=== PATIENT | female | born 1985 | race Caucasian/White ===

== ENCOUNTER 2016-12-09 14:45 | Emergency (ER) | payer SELFPAY ==
[~2016-12-09] VITALS: Ht 162.6 cm; Wt 98.0 kg
[2016-12-09 15:04] VITALS: BP 139/82; PULSE 134; RESP 18; TEMP 102.2; O2SAT 98
[2016-12-09] MEDS ORDERED: SODIUM CHLOR 0.9% 1000 ML INJ 1,000 ML IV SCH (16:01)
[2016-12-09] MEDS ORDERED: MORPHINE SULFATE 4 MG/ML INJ IV PUSH ONE ×2 (16:15→19:30)
[2016-12-09] MEDS ORDERED: SODIUM CHLORIDE 0.9% FLUSH 10 ML FLUSH IV FLUSH PRN (16:15)
[2016-12-09] MEDS ORDERED: VANCOMYCIN INJ 1,000 MG in SODIUM CHLOR 0.9% 250 ML INJ 250 ML IV ONE (16:15)
[2016-12-09] MEDS ORDERED: ONDANSETRON HCL 4 MG/2 ML VIAL IV PUSH ONE (16:15)
--- NOTE | 2016-12-09 16:21 | PD ---
HPI Chief Complaint: Injury Time Seen by Provider: 16:12 Travel History International Travel<30 days: No Contact w/Intl Traveler<30days: No Traveled to known affect area: No History of Present Illness HPI 31-year-old female presents to the emergency Department with complaint of left hand pain and swelling secondary to possible insect bite that she noticed 3-4 days ago. Reports being up-to-date on her tetanus vaccination. Reports onset of fever with MAXIMUM TEMPERATURE 102.02 days ago. Reports vomiting for 2 days. Reports paresthesias to the left hand. Reports decreased range of motion to her fingers and wrist. Denies IV drug use. Rates pain 10/10. Describes it as a throbbing, pressure. Pain radiates up the arm. Has been taking ibuprofen for symptom management. No known relieving factors. Pain is constant. Allergies to doxycycline. Has no other medical complaints. No other modifying factors or associated signs and symptoms. PFSH Past Medical History ?: Not Past Surgical History Hysterectomy: Yes (2014) Social History Alcohol Use: No Tobacco Use: No Substance Use: No Allergies-Medications (Allergen,Severity, Reaction): Coded Allergies: doxycycline (Verified Allergy, Severe, Rash, 12/09/16) Review of Systems Except as stated in HPI: all other systems reviewed are Neg Physical Exam Narrative GENERAL: Well-nourished, well-developed female patient, in no acute distress; febrile 102.2 SKIN: There is an indurated area to the volar aspect of the left hand which measures about 2 cm in diameter. It is fluctuant but there is no pointing or drainage. There is a wound that is approximately 0.5 cm x 1 cm to the volar aspect of the left hand just between the fifth and fourth metacarpal region; No drainage noted; area is with fluctuance. There is a zone of inflammation around. Left hand and wrist are edematous, with erythema, and warmth to touch. Left upper extremity is supple and non-tense with 2+ radial pulse and sensory intact. HEAD: Atraumatic. Normocephalic. EYES: Pupils equal and round. No scleral icterus. No injection or drainage. ENT: Mucosa pink and moist. Airway patent. NECK: Trachea midline. CARDIOVASCULAR: Tachycardic rate and rhythm. No murmur appreciated. RESPIRATORY: Breath sounds clear and equal bilaterally. No accessory muscle use. GASTROINTESTINAL: Obese. MUSCULOSKELETAL: No obvious deformities. No clubbing. No cyanosis. No edema. NEUROLOGICAL: Awake and alert. Oriented 3. No obvious cranial nerve deficits. Motor grossly within normal limits. Normal speech. PSYCHIATRIC: Appropriate mood and affect; insight and judgment normal. Data Data Last Documented VS Vital Signs Date Time Temp Pulse Resp B/P (MAP) Pulse Ox O2 Delivery O2 Flow Rate FiO2 12/09/16 15:04 102.2 134 18 139/82 (101) 98 Orders Orders Complete Blood Count With Diff (12/09/16 16:) Comprehensive Metabolic Panel (12/09/16 16:) Urinalysis - C+S If Indicated (12/09/16 16:) Blood Culture (12/09/16 16:) Chest, Single Ap (12/09/16 16:) Ecg Monitoring (12/09/16 16:) Iv Access Insert/Monitor (12/09/16 16:) Oximetry (12/09/16 16:) Morphine Inj (Morphine Inj) (12/09/16 16:15) Sodium Chlor 0.9% 1000 Ml Inj (Ns 1000 M (12/09/16 16:01) Sodium Chloride 0.9% Flush (Ns Flush) (12/09/16 16:15) Lactic Acid (12/09/16 16:01) Prothrombin Time / Inr (Pt) (12/09/16 16:01) Act Partial Throm Time (Ptt) (12/09/16 16:01) Ed Urine Pregnancytest Poc (12/09/16 16:01) Ondansetron Inj (Zofran Inj) (12/09/16 16:15) Hand, Complete ([id number]) (12/09/16 16:01) Vancomycin Inj (Vancomycin Inj) (12/09/16 16:15) [facility] Medical Decision Making Medical Screen Exam Complete: Yes Emergency Medical Condition: Yes Medical Record Reviewed: Yes Differential Diagnosis Sepsis, abscess, cellulitis, osteomyelitis Narrative Course 31-year-old female with abscess and cellulitis to the volar aspect of the left hand. Patient is fever of 102.2. Heart rate 134. Tetanus up-to-date. Patient denies IV drug use. Sepsis protocol initiated. IV site obtained. Labs , IV fluid bolus, blood cultures, lactic acid, left hand x-ray, morphine, Zofran ordered. 1638: Patient moved to a medical bed for further treatment and evaluation. Report given to KELL Oliveira. See her note for patient final disposition. Renae Asencio Dec 09, 2016 16:21
--- NOTE | 2016-12-09 16:36 | RADRPT ---
EXAM DATE/TIME: 12/09/2016 16:22 [facility] COMPARISON: No previous studies available for comparison. INDICATIONS : Fever. MEDICAL HISTORY : None. SURGICAL HISTORY : None. ENCOUNTER: Initial ACUITY: 4 - 6 days PAIN SCORE: 0/10 LOCATION: chest FINDINGS: A single view of the chest demonstrates the lungs to be symmetrically aerated without evidence of mas s, infiltrate or effusion. The cardiomediastinal contours are unremarkable. Osseous structures are intact. CONCLUSION: No evidence of acute cardiopulmonary disease. Guicho Castro MD on December 09, 2016 at 16:34 Board Certified Radiologist. This report was verified electronically.
--- NOTE | 2016-12-09 16:38 | RADRPT ---
EXAM DATE/TIME: 12/09/2016 16:19 [facility] COMPARISON: No previous studies available for comparison. INDICATIONS : Patient complains of pain in left hand and swelling to area of possible bug bite near 5th MCPJ. MEDICAL HISTORY : None. SURGICAL HISTORY : None. ENCOUNTER: Initial ACUITY: 4 - 6 days PAIN SCORE: 10/10 LOCATION: Left Hand FINDINGS: Severe and fairly diffuse soft tissue swelling noted. No radiopaque foreign body. Bones of the left h and are intact and normally aligned. CONCLUSION: Soft tissue swelling without foreign body or acute bony abnormality. Guicho Castro MD on December 09, 2016 at 16:35 Board Certified Radiologist. This report was verified electronically.
[2016-12-09] MEDS ORDERED: IBUPROFEN 800 MG TAB PO ONE (16:45)
--- NOTE | 2016-12-09 16:57 | PD ---
Physical Exam Date Seen by Provider: Dec 09, 2016 Narrative For full history and physical examination please see previous provider's note. I assumed care of this patient when she was transferred to echo pod. Data Data Last Documented VS Vital Signs Date Time Temp Pulse Resp B/P (MAP) Pulse Ox O2 Delivery O2 Flow Rate FiO2 12/09/16 19:55 98.9 12/09/16 19:15 18 99 Room Air 12/09/16 19:15 79 Orders Orders Complete Blood Count With Diff (12/09/16 16:01) Comprehensive Metabolic Panel (12/09/16 16:01) Urinalysis - C+S If Indicated (12/09/16 16:01) Blood Culture (12/09/16 16:01) Chest, Single Ap (12/09/16 16:) Ecg Monitoring (12/09/16 16:01) Iv Access Insert/Monitor (12/09/16 16:01) Oximetry (12/09/16 16:01) Morphine Inj (Morphine Inj) (12/09/16 16:15) Sodium Chlor 0.9% 1000 Ml Inj (Ns 1000 M (12/09/16 16:01) Sodium Chloride 0.9% Flush (Ns Flush) (12/09/16 16:15) Lactic Acid (12/09/16 16:01) Prothrombin Time / Inr (Pt) (12/09/16 16:01) Act Partial Throm Time (Ptt) (12/09/16 16:01) Ed Urine Pregnancytest Poc (12/09/16 16:01) Ondansetron Inj (Zofran Inj) (12/09/16 16:15) Hand, Complete (Dpt5gve) (12/09/16 16:01) Vancomycin Inj (Vancomycin Inj) (12/09/16 16:15) Ibuprofen (Motrin) (12/09/16 16:45) Vascular Access Team Consult/P PRN (12/09/16 16:44) Vascular Poc Ultrasound (12/09/16 ) Wound Culture And Gram Stain (12/09/16 17:48) Drug Screen, Random Urine (12/09/16 18:03) Piperacil-Tazo 4.5 Gm Premix (Zosyn 4.5 (12/09/16 18:04) Clindamycin Inj (Cleocin Inj) (12/09/16 18:04) Acetaminophen (Tylenol) (12/09/16 19:00) Oxycodone-Acetamin 7.5-325 Mg (Percocet (12/09/16 19:30) Morphine Inj (Morphine Inj) (12/09/16 19:30) Labs Laboratory Tests Test 12/09/16 17:15 12/09/16 18:02 12/09/16 18:05 White Blood Count 8.5 TH/MM3 Red Blood Count 4.51 MIL/MM3 Hemoglobin 13.5 GM/DL Hematocrit 39.0 % Mean Corpuscular Volume 86.4 FL Mean Corpuscular Hemoglobin 30.0 PG Mean Corpuscular Hemoglobin Concent 34.7 % Red Cell Distribution Width 13.2 % Platelet Count 221 TH/MM3 Mean Platelet Volume 8.4 FL Neutrophils (%) (Auto) 79.0 % Lymphocytes (%) (Auto) 11.9 % Monocytes (%) (Auto) 8.8 % Eosinophils (%) (Auto) 0.0 % Basophils (%) (Auto) 0.3 % Neutrophils # (Auto) 6.7 TH/MM3 Lymphocytes # (Auto) 1.0 TH/MM3 Monocytes # (Auto) 0.8 TH/MM3 Eosinophils # (Auto) 0.0 TH/MM3 Basophils # (Auto) 0.0 TH/MM3 CBC Comment DIFF FINAL Differential Comment Prothrombin Time 12.0 SEC Prothromb Time International Ratio 1.1 RATIO Activated Partial Thromboplast Time 26.8 SEC Blood Urea Nitrogen 8 MG/DL Creatinine 0.76 MG/DL Random Glucose 107 MG/DL Total Protein 8.3 GM/DL Albumin 3.3 GM/DL Calcium Level 8.7 MG/DL Alkaline Phosphatase 84 U/L Aspartate Amino Transf (AST/SGOT) 25 U/L Alanine Aminotransferase (ALT/SGPT) 16 U/L Total Bilirubin 0.7 MG/DL Sodium Level 132 MEQ/L Potassium Level 3.9 MEQ/L Chloride Level 101 MEQ/L Carbon Dioxide Level 24.3 MEQ/L Anion Gap 7 MEQ/L Estimat Glomerular Filtration Rate 89 ML/MIN Lactic Acid Level 1.1 mmol/L Urine Color YELLOW Urine Turbidity HAZY Urine pH 6.5 Urine Specific [place] 1.025 Urine Protein 100 mg/dL Urine Glucose (UA) NEG mg/dL Urine Ketones 80 mg/dL Urine Occult Blood TRACE Urine Nitrite NEG Urine Bilirubin NEG Urine Urobilinogen 4.0 MG/DL Urine Leukocyte Esterase TRACE Urine RBC 9 /hpf Urine WBC 6 /hpf Urine Squamous Epithelial Cells 28 /hpf Urine Mucus MANY /lpf Microscopic Urinalysis Comment CULT NOT INDICATED Urine Opiates Screen POS Urine Barbiturates Screen NEG Urine Amphetamines Screen NEG Urine Benzodiazepines Screen NEG Urine Cocaine Screen NEG Urine Cannabinoids Screen NEG MDM Medical Record Reviewed: Yes Supervised Visit with PERLA: No Interpretation(s) Vital Signs Date Time Temp Pulse Resp B/P (MAP) Pulse Ox O2 Delivery O2 Flow Rate FiO2 12/09/16 15:04 102.2 134 18 139/82 (101) 98 Differential Diagnosis Cellulitis versus abscess versus sepsis versus Narrative Course Patient is a 31-year-old female that presented to evaluation left hand pain and swelling after being allegedly bit by something 4 days ago. Labs and imaging initiated while patient was in K pod. X-ray of the right hand shows soft tissue swelling. Chest x-ray shows no acute disease CBC is unremarkable Chemistry is unremarkable, lactic acid 1.1 Wound culture obtained after I&D was performed and is pending. Patient given IV vancomycin, Clindamycin, zosyn, oral ibuprofen for her fever, Morphine ordered for pain. 1858 patient reassessed, temp is 100.5. Patient continues to states that she "feels like crap". Acetaminophen ordered. Urine drug screen is positive for opiates however patient received a dose prior to the urine drug screen being performed. Plan of care discussed with my attending physician. Urinalysis with elevated urobilinogen at 4.0, elevated white blood cells 9, elevated white blood cells at 6, elevated ketones. Patient will be given IV antibiotics and then discharged home with oral antibiotics to complete full course of therapy. She will be brought back to the emergency department in 48 hours to have packing removed and for reevaluation. She is advised to return sooner for any new or worsening symptoms. Procedures Procedure Narrative After the risks and benefits were discussed the following procedure was performed: INCISION AND DRAINAGE OF ABSCESS: The area was prepped and was sterilely draped. A subcutaneous wheal of 1% Xylocaine with a total number 1 mL was used to anesthetize the area. The area was properly anesthetized. A number 11 scalpel was used to make a 0.5 -cm incision across the area of the abscess. Cultures were obtained. The abscess was drained an irrigated with normal saline. Quarter inch iodoform packing was placed in the wound. Sterile dressing applied. Patient advised to have packing removed in two days. Sepsis Criteria SIRS Criteria (2 or more): Temp > 100.9 or < 96.8, Heart rate over 90 Sepsis Criteria (SIRS+source): Infect source susp/known (left hand cellulitis/ abscess) Diagnosis Primary Impression: Cellulitis and abscess of hand Referrals: [facility] Primary Care Physician Patient Instructions: Abscess (GEN), Abscess Incision and Drainage (GEN), Cellulitis (ED), General Instructions Departure Forms: Tests/Procedures, Work Release Enter return to work date: Dec 12, 2016 Additional Instruction: Return to emergency department in 48 hours to have packing removed from your hand Return immediately for any new or worsening symptoms Complete full course of antibiotics as prescribed Do not drive or operate machinery while taking narcotic pain medication keep incision clean and dry, apply topical antibiotic ointment and change dressing twice daily Med/Other Pt SpecificInfo: Prescription(s) given Scripts Ibuprofen (Ibuprofen) 800 Mg Tab 800 MG PO Q6HR Y for PAIN, #40 TAB 0 Refills Prov: Donna Alejandre 12/09/16 Oxycodone-Acetaminophen (Percocet) 5-325 mg Tab 1 TAB PO Q4H Y for PAIN, #10 TAB 0 Refills Prov: Donna Alejandre 12/09/16 Mupirocin Topical (Mupirocin Topical) 2 % Oint 1 APPLIC TOPICAL BID for Mgmt Bacterial Infection, #22 GM 0 Refills Prov: Donna Alejandre 12/09/16 Cephalexin (Keflex) 500 Mg Cap 500 MG PO Q12H for Infection, #20 CAP 0 Refills Prov: Donna Alejandre 12/09/16 Sulfamethoxazole-Trimethoprim (Bactrim DS) 800-160 Mg Tab 1 TAB PO BID for Infection, #20 TAB 0 Refills Prov: Donna Alejandre 12/09/16 Disposition: 01 DISCHARGE HOME Condition: Stable Donna Alejandre Dec 09, 2016 16:57
[2016-12-09] MEDS ORDERED: [UNRECOGNIZED DRUG - REMARK] (17:01)
[2016-12-09 17:30] LABS: AUTOMATED NEUTROPHIL # 6.7 TH/MM3 (1.8-7.7); BASOPHIL % 0.3 % (0.0-2.0); HEMO FLAGS DIFF FINAL; LYMPH % 11.9 % (9.0-44.0); MEAN CELL VOLUME 86.4 FL (80.0-100.0); MEAN CORPUSCULAR HGB CONC 34.7 % (32.0-36.0); MONO % 8.8 % (0.0-8.0); PLATELET COUNT 221 TH/MM3 (150-450); RED BLOOD COUNT 4.51 MIL/MM3 (4.00-5.30); RED CELL DISTRIBUTION WIDTH 13.2 % (11.6-17.2); WHITE BLOOD COUNT 8.5 TH/MM3 (4.0-11.0)
[2016-12-09 17:44] LABS: APTT (PATIENT) 26.8 SEC (24.3-30.1); INTERNATIONAL NORMALIZED RATIO 1.1 RATIO
[2016-12-09 17:54] LABS: ALKALINE PHOSPHATASE 84 U/L (45-117); ALT (GPT) 16 U/L (10-53); TOTAL BILIRUBIN ADULT 0.7 MG/DL (0.2-1.0)
[2016-12-09 17:58] LABS: ANION GAP 7 MEQ/L (5-15); AST (GOT) 25 U/L (15-37); BICARBONATE 24.3 MEQ/L (21.0-32.0); BLOOD UREA NITROGEN 8 MG/DL (7-18); CHLORIDE 101 MEQ/L (98-107); GLOMERULAR FILTRATION RATE 89 ML/MIN (>89); POTASSIUM 3.9 MEQ/L (3.5-5.1); SODIUM (NA) 132 MEQ/L (136-145)
[2016-12-09] MEDS ORDERED: PIPERACIL-TAZO 4.5 GM PREMIX 100 ML IV STA (18:04)
[2016-12-09] MEDS ORDERED: CLINDAMYCIN INJ 900 MG in SODIUM CHLORIDE 0.9% INJ 100 ML IV STA (18:04)
[2016-12-09 18:33] LABS: BLOOD, URINE TRACE (NEG); COMMENT (UR) CULT NOT INDICATED; CULTURE IF INDICATED CULT NOT INDICATED; GLUCOSE,URINE NEG (NEG); KETONE, URINE 80 mg/dL (NEG); MUCUS URINE MANY /lpf (OCC); NITRITE,URINE NEG (NEG); PH, URINE 6.5 (5.0-8.5); SQUAMOUS EPITHELIAL CELL URINE 28 /hpf (0-5); URINE COLOR YELLOW (YELLW/STRAW)
[2016-12-09] MEDS ORDERED: ACETAMINOPHEN 500 MG CPLT PO ONE (19:00)
[2016-12-09 19:15] VITALS: BP 120/58; PULSE 79; RESP 18; O2SAT 99
[2016-12-09] MEDS ORDERED: BACT800T5 PO (19:18)
[2016-12-09] MEDS ORDERED: CEPH-460 PO (19:18)
[2016-12-09] MEDS ORDERED: MUPI2OIN TOPICAL (19:18)
[2016-12-09] MEDS ORDERED: PERC5TAB12 PO (19:18)
[2016-12-09] MEDS ORDERED: IBUP1TAB7 PO (19:27)
[2016-12-09] MEDS ORDERED: oxyCODONE/ACETAMINOPHEN 7.5 MG/325 MG TAB PO ONE (19:30)
[2016-12-09 19:55] VITALS: TEMP 98.9
== END 2016-12-09 20:23 | disposition home or self-care (01) ==
LOC: NEPE 14:45
DX: L02.519 Cutaneous abscess of unspecified hand (principal); L03.019 Cellulitis of unspecified finger; R50.9 Fever, unspecified
CPT/HCPCS: 10061; 71010; 73130; 80053; 80307; 81001; 83605; 84703; 85025; 85610; 85730; 87040; 96365; 96367; 96375; 96376; 99284; J2270; J2405; J2543; J3370; J7030; J7050

== ENCOUNTER 2016-12-11 19:25 | Emergency (ER) | payer SELFPAY ==
[~2016-12-11 19:25] MED LIST: BACT800T5 PO; CEPH-460 PO; IBUP1TAB7 PO; MUPI2OIN TOPICAL; PERC5TAB12 PO; [UNRECOGNIZED DRUG - REMARK]
[2016-12-11 19:28] VITALS: BP 143/81; PULSE 86; RESP 16; TEMP 98.5; O2SAT 100
[2016-12-11] MEDS ORDERED: ZOFR4TAB3 SL (21:05)
--- NOTE | 2016-12-11 21:08 | PD ---
HPI Chief Complaint: Injury Time Seen by Provider: 20:45 Travel History International Travel<30 days: No Contact w/Intl Traveler<30days: No Traveled to known affect area: No History of Present Illness HPI PATIENT SEEN 3 DAYS AGO HAD I&D AND PACKING AND ADVISED TO RETURN FOR REPACKING , CURRENTLY ON KEFLEX AND BACTRIM WHICH SHE IS STILL TAKING. PATIENT STATES THAT SHE OCCASIONALLY HAS BOUTS OF NAUSEA AFTER TAKING BACTRIM, BUT NO RASH PFSH Past Surgical History Hysterectomy: Yes (2014) Social History Alcohol Use: No Tobacco Use: No Substance Use: No Allergies-Medications (Allergen,Severity, Reaction): Coded Allergies: doxycycline (Verified Allergy, Severe, Rash, 12/09/16) Reported Meds & Prescriptions Reported Meds & Active Scripts Active Ibuprofen 800 Mg Tab 800 Mg PO Q6HR PRN Percocet (Oxycodone-Acetaminophen) 5-325 mg Tab 1 Tab PO Q4H PRN Mupirocin Topical (Mupirocin) 2 % Oint 1 Applic TOPICAL BID Keflex (Cephalexin) 500 Mg Cap 500 Mg PO Q12H Bactrim DS (Sulfamethoxazole-Trimethoprim) 800-160 Mg Tab 1 Tab PO BID Reported [estrogen pills ] Review of Systems Except as stated in HPI: all other systems reviewed are Neg General / Constitutional: No: Fever Eyes: No: Visual changes HENT: No: Headaches Cardiovascular: No: Chest Pain or Discomfort Respiratory: No: Shortness of Breath Gastrointestinal: No: Abdominal Pain Genitourinary: No: Dysuria Musculoskeletal: No: Pain Skin: Positive Other (LEFT HAND ABSCESS S/P PACKING) Neurologic: No: Weakness Psychiatric: No: Depression Endocrine: No: Polydipsia Hematologic/Lymphatic: No: Easy Bruising Physical Exam Narrative GENERAL: SKIN: Warm and dry. LEFT DORSUM OF HAND HAS PACKING IN PLACE, NO STREAKING, SOFTENING NOTED BUT NO FLUCTUANCE. HEAD: Atraumatic. Normocephalic. EYES: Pupils equal and round. No scleral icterus. No injection or drainage. ENT: No nasal bleeding or discharge. Mucous membranes pink and moist. NECK: Trachea midline. No JVD. CARDIOVASCULAR: Regular rate and rhythm. RESPIRATORY: No accessory muscle use. Clear to auscultation. Breath sounds equal bilaterally. GASTROINTESTINAL: Abdomen soft, non-tender, nondistended. Hepatic and splenic margins not palpable. MUSCULOSKELETAL: Extremities without clubbing, cyanosis, or edema. No obvious deformities. NEUROLOGICAL: Awake and alert. No obvious cranial nerve deficits. Motor grossly within normal limits. Five out of 5 muscle strength in the arms and legs. Normal speech. PSYCHIATRIC: Appropriate mood and affect; insight and judgment normal. Data Data Last Documented VS Vital Signs Date Time Temp Pulse Resp B/P (MAP) Pulse Ox O2 Delivery O2 Flow Rate FiO2 12/11/16 19:28 98.5 86 16 143/81 (101) 100 MDM Medical Decision Making Medical Screen Exam Complete: Yes Emergency Medical Condition: Yes Medical Record Reviewed: Yes Differential Diagnosis N/A Narrative Course AFTER EVALUATION, AREA HEALING WELL, NO SORROUNDING STREAKING, DECREASING CELLULITIC AREA, APPROPRIATE WOUND HEALING, HOWEVER, NOT YET FULLY RESOLVED WILL REPACK AFTER IRRIGATION Procedures Procedure Narrative AREA CLEANED, IRRIGATED AND REPACKED WITH IODOFORM GAUZE..PATIENT TOLERATED WELL. Diagnosis Primary Impression: WOUND CARE (REPACKING/IRRGATION) Patient Instructions: Acute Wound Care (GEN), General Instructions Scripts Ondansetron Odt (Zofran Odt) 4 Mg Tab 4 MG SL Q6HR Y for Nausea/Vomiting, #21 TAB 0 Refills Prov: Ricardo Barrera MD 12/11/16 Disposition: 01 DISCHARGE HOME Condition: Stable Ricardo Barrera MD Dec 11, 2016 21:08
== END 2016-12-11 21:45 | disposition home or self-care (01) ==
LOC: NEPE 19:25
DX: Z48.01 Encounter for change or removal of surgical wound dressing (principal)
CPT/HCPCS: 99281

== ENCOUNTER 2017-11-01 19:27 | Inpatient (IN) ==
[2017-11-01] MEDS ORDERED: Vancomycin Inj 1 GM/200 ML PIGGYBACK IV.SIG ONE (22:34)
[2017-11-01] MEDS ORDERED: Ketorolac Inj 30 MG/ML (IVP) Vial IV.PUSH ONE (22:34)
--- NOTE | 2017-11-01 22:44 | ED ---
HPI General Chief complaint: Skin/Abscess/Foreign Body Stated complaint: recheck left hand/skin issue Time Seen by Provider: 11/01/17 22:22 Source: patient Mode of arrival: ambulatory Limitations: no limitations History of Present Illness HPI narrative: 32-year-old female complains of pain and swelling and redness of the left hand. Patient has history of IV drug abuse. Patient states that she started having increased redness swelling and pain the left hand 4 days ago. Patient was seen at [facility] 4 days ago and had I&D of the left hand. Patient states that she has packing in place. Patient was given prescription for clindamycin and Keflex. Patient states that she was unable to fill prescription for clindamycin and has been taking Keflex as directed. Patient states that she had low-grade fever and intermittent nausea vomiting for the past several days. Patient states that she had increasing redness swelling and pain to the left hand. Patient stated pain burning pain and sharp pain started in the dorsal aspect left hand with radiates to the left wrist and left forearm. Patient denies any chance of being . Patient status post hysterectomy. Patient on estrogen. complaint: abscess/boil Onset (ago): day(s) Tetanus Immunization: <5 Years Location: L hand Severity: severe Severity scale (1-10): 10 Quality: sharp Pain Consistency: constant Relieving factors: none Exacerbating factors: none Context: IVDA Associated symptoms: fever, nausea and vomiting Treatments prior to arrival: antibiotic Related Data Home Medications Medication Instructions Recorded Confirmed No Known Home Medications 11/01/17 11/01/17 Allergies Allergy/AdvReac Type Severity Reaction Status Date / Time doxycycline Allergy Severe Rash Verified 11/01/17 21:14 Sulfa (Sulfonamide Allergy Vomiting Verified 11/01/17 21:14 Antibiotics) sumatriptan [From Imitrex] Allergy Anaphylaxis Verified 11/01/17 21:14 tramadol Allergy Hives Verified 11/01/17 21:14 Review of Systems ROS: all other systems reviewed are negative PMFSH Medical History Medical History Endometriosis (Acute) Hx of hysterectomy (Acute) Surgical History Surgical History Hx of appendectomy (Acute) Hx of cholecystectomy (Acute) Social History Social History Substance History: Active Abuse Second Hand Smoke Exposure: No Smoking Status: Never smoker How Often Do You Have a Drink Containing Alcohol: 2 to 4 times a month Recent Travel in [facility] within the Last 8 Weeks: No Recent Out of Country Travel within the Last 8 Weeks: No Substance Abuse Detail Opiates: Substance Use Status: Active Route Used Substance Abuse: Intravenously Reason for Use: Feels Good Immunization History Tetanus Immunization: Unsure Hx Influenza Vaccine This Season: No Exam Narrative Exam Narrative: GENERAL: Well-nourished, well-developed patient. SKIN: Focused skin assessment warm/dry. HEAD: Normocephalic. EYES: No scleral icterus. No injection or drainage. NECK: Supple, trachea midline. No JVD or lymphadenopathy. CARDIOVASCULAR: Regular rate and rhythm without murmurs, gallops, or rubs. RESPIRATORY: Breath sounds equal bilaterally. No accessory muscle use. GASTROINTESTINAL: Abdomen soft, non-tender, nondistended. MUSCULOSKELETAL: Patient has redness swelling tenderness dorsal aspect of left hand over the metacarpal area especially the fifth and fourth and third metacarpals. Packing in place. No drainage noted. Induration noted. Decrease in range of motion of the fingers. BACK: Nontender without obvious deformity. No CVA tenderness. Course Initial Documented Vital Signs Temperature 99.5 F 11/01/17 21:10 Pulse Rate 93 H 11/01/17 21:10 Respiratory Rate 18 11/01/17 21:10 Blood Pressure 136/66 11/01/17 21:10 Pulse Oximetry 100 11/01/17 21:10 Last Documented Vital Signs Temperature 99.5 F 11/01/17 21:10 Pulse Rate 75 11/02/17 01:25 Respiratory Rate 17 11/02/17 01:25 Blood Pressure 126/81 11/02/17 01:25 Pulse Oximetry 100 11/02/17 01:25 Medical Decision Making MDM Narrative Medical decision making narrative: 32-year-old female with left hand redness swelling tenderness. Status post I&D of abscess 4 days ago at [facility]. Patient has increasing redness swelling pain since then. Patient has been taking Keflex. The packing was removed. A large amount of pus recovered. Wound culture obtained. Dressing applied. Vancomycin 1 g IV given. Toradol 30 mg IV given. Medical Screen Exam Complete: Yes Emergency Medical Condition: Yes Differential Diagnosis Differential Diagnosis: Differential diagnosis including cellulitis, abscess. Lab Data Lab results reviewed: Yes I reviewed the patient's lab results. Result diagrams: 11/02/17 00:30 11/02/17 00:30 Lab Results 11/02/17 11/02/17 Range/Units 00:30 00:30 WBC 6.0 (4.0-11.0) th/mm3 RBC 4.12 (4.00-5.30) mil/mm3 Hgb 11.9 (11.6-15.3) gm/dL Hct 35.5 (35.0-46.0) % MCV 86.2 (80.0-100.0) fL MCH 28.8 (27.0-34.0) pg MCHC 33.4 (32.0-36.0) % RDW 13.2 (11.6-17.2) % Plt Count 288 (150-450) th/mm3 MPV 7.8 (7.0-11.0) fL Neut % (Auto) 67.1 (16.0-70.0) % Lymph % (Auto) 25.4 (9.0-44.0) % [place] % (Auto) 6.7 (0.0-8.0) % Eos % (Auto) 0.6 (0.0-4.0) % Baso % (Auto) 0.2 (0.0-2.0) % Neut # (Auto) 4.0 (1.8-7.7) th/mm3 Lymph # (Auto) 1.5 (1.0-4.8) th/mm3 [place] # (Auto) 0.4 (0.0-0.9) th/mm3 Eos # (Auto) 0.0 (0.0-0.4) th/mm3 Baso # (Auto) 0.0 (0.0-0.2) th/mm3 WBC Differential . Differential Comment Auto diff final Sodium 144 (136-145) meq/L Potassium 3.7 (3.5-5.1) meq/L Chloride 109 H (98-107) meq/L Carbon Dioxide 25.8 (21.0-32.0) meq/L Anion Gap 9 (5-15) meq/L BUN 9 (7-18) mg/dL Creatinine 0.78 (0.50-1.00) mg/dL Estimated GFR 86 L (>89) mL/min Random Glucose 97 (74-106) mg/dL Calcium 8.7 (8.5-10.1) mg/dL Imaging Data Attestation: I personally reviewed and interpreted this imaging study as follows : Radiologist's impression: Hand X-Ray 11/01/17 22:30 CONCLUSION: 1. Osseous structures the hand are radiographically intact. 2. Mild dorsal soft tissue swelling. Discharge Plan Discharge Disposition Patient Disposition: 30 Still Patient Physicians Team ED Provider: Tong Toledo Primary Care Provider: Primary Care BeryliAmber Rxs /Orders / Referrals /Forms Prescriptions: No Action No Known Home Medications RF: 0 Status ED Status: With Doctor
[2017-11-01] MEDS ORDERED: Vancomycin Inj 1,000 MG in Sodium Chlor 0.9% Inj 250 ML IV.SIG ONE (22:45)
--- NOTE | 2017-11-01 23:08 | XR ---
EXAM DATE: 11/01/2017 10:30 PM EDT AGE/SEX: 32 years / Female INDICATIONS: Left hand pain and swelling. Possible abscess. CLINICAL DATA: This is the patient's initial encounter. Patient reports that signs and symptoms have been present for 4 - 6 days and indicates a pain score of 10/10. MEDICAL/SURGICAL HISTORY: None. None. COMPARISON: [facility] [place], HAND LEFT COMPLETE ([id number]), 12/09/2016. . FINDINGS: Bony structures are intact and in normal alignment. Osseous density is normal. Mild soft tissue swell ing about the dorsum of the hand.. No radiopaque foreign bodies seen. CONCLUSION: 1. Osseous structures the hand are radiographically intact. 2. Mild dorsal soft tissue swelling. Electronically signed by: Byron Meeks MD 11/01/2017 11:07 PM EDT
[2017-11-02 00:47] LABS: Baso % (Auto) 0.2 % (0.0-2.0); Eos % (Auto) 0.6 % (0.0-4.0); Hematocrit 35.5 % (35.0-46.0); Hemoglobin 11.9 gm/dL (11.6-15.3); Lymph # (Auto) 1.5 th/mm3 (1.0-4.8); Lymph % (Auto) 25.4 % (9.0-44.0); Mean Corpuscular HGB Conc 33.4 % (32.0-36.0); Mean Corpuscular Hemoglobin 28.8 pg (27.0-34.0); Mean Corpuscular Volume 86.2 fL (80.0-100.0); Mean Platelet Volume 7.8 fL (7.0-11.0); Mono # (Auto) 0.4 th/mm3 (0.0-0.9); Mono % (Auto) 6.7 % (0.0-8.0); Neut % (Auto) 67.1 % (16.0-70.0); Platelet Count 288 th/mm3 (150-450); Red Blood Count 4.12 mil/mm3 (4.00-5.30); Red Cell Distribution Width 13.2 % (11.6-17.2)
[2017-11-02 01:04] LABS: Calcium 8.7 mg/dL (8.5-10.1); Carbon Dioxide 25.8 meq/L (21.0-32.0); Potassium 3.7 meq/L (3.5-5.1)
[2017-11-02] MEDS ORDERED: Vancomycin Consult Pharmacy OTHER PRN (04:25)
[2017-11-02] MEDS ORDERED: Bisacodyl 10 MG Supp RECTAL PRN (04:28)
[2017-11-02] MEDS ORDERED: Acetaminophen 325 MG Tablet PO ONE (04:28)
--- NOTE | 2017-11-02 05:15 | P.HPIM ---
History of Present Illness Primary Care Physician: No Primary Care Physician History of Present Illness: 32-year-old female with a history of IV drug use who presents with one week history of redness, swelling, constant sharp pain in the left hand. She presented to [facility] 4 days ago, had an incision and drainage with culture, was sent home on Keflex and clindamycin, however has only been able to take her Keflex. She presents with worsening pain, swelling in the left hand. She endorses low-grade fevers, nausea, nonbloody vomiting. Denies any chest pain or shortness of breath. Inpatient Certification: I certify that the inpatient services were ordered in accordance with Medicare regulations governing the order. This includes certification that hospital inpatient services are reasonable and necessary and in the case of services not specified as inpatient-only under 42 CFR 419.22(n), that they are appropriately provided as inpatient services in accordance to with the 2-midnight benchmark under 43 CFR 412.3(e) Review of Systems All other systems reviewed negative except as stated in HPI PMFSH - History History Provided By: Patient - Medical History Medical History: Medical History (Last Reviewed 11/01/17 @ 22:41 by Tong Toledo MD) Endometriosis Hx of hysterectomy - Surgical History Surgical History: Surgical History (Last Reviewed 11/01/17 @ 22:41 by Tong Toledo MD) Hx of appendectomy Hx of cholecystectomy - Family History Family History: Family History (Last Updated 11/02/17 @ 05:10 by Gael Mejia MD) Mother Stroke Father Diabetes - Tobacco History Second Hand Smoke Exposure: No Smoking Status: Never smoker - Alcohol History How Often Do You Have a Drink Containing Alcohol: 2 to 4 times a month - Substance Use History Substance History: Active Abuse - Substance Use Type Opiates Status: Active Route Used: Intravenously Reason for Use: Feels Good - Travel History Recent Travel in the [place] Within the Last 8 Weeks: No Recent Travel Out of the Country Within the Last 8 Weeks: No - Immunization History Tetanus Immunization: Unsure Hx Influenza Vaccine This Season: No Medications and Allergies Active Medications: Active Medications Al Hydroxide/Mg Hydroxide (Milk Of Magnesia Liq) 30 ml PO Q12H PRN PRN Reason: Mild Constipation Bisacodyl (Dulcolax Supp) 10 mg RECTAL DAILY PRN PRN Reason: SEVERE CONSITIPATION Sodium Chloride (Ns Inj) 1,000 mls @ 100 mls/hr IV.CONT .Q10H KOFI Lactulose (Lactulose Liq) 30 ml PO DAILY PRN PRN Reason: SEVERE CONSITIPATION Pharmacy Profile Note (Vancomycin Consult Pharmacy) 1 each OTHER UNSCH PRN PRN Reason: Pharmacy to dose Sennosides (Senokot) 17.2 mg PO Q12H PRN PRN Reason: Moderate Constipation Allergies Allergy/AdvReac Type Severity Reaction Status Date / Time doxycycline Allergy Severe Rash Verified 11/01/17 21:14 Sulfa (Sulfonamide Allergy Vomiting Verified 11/01/17 21:14 Antibiotics) sumatriptan [From Imitrex] Allergy Anaphylaxis Verified 11/01/17 21:14 tramadol Allergy Hives Verified 11/01/17 21:14 Home Medications Medication Instructions Recorded Confirmed Type No Known Home Medications 11/01/17 11/01/17 History Exam Vital signs: Vital Signs 11/01/17 21:10 11/02/17 01:25 Temperature 99.5 F Pulse Rate 93 H 75 Respiratory Rate 18 17 Blood Pressure 136/66 126/81 Pulse Oximetry 100 100 Intake & Output 11/01/17 11/01/17 11/02/17 06:59 18:59 06:59 Intake Total 250 / 250 Balance 250 / 250 Weight 95.254 kg Intake: IV 250 / 250 Vancomycin Inj 1,000 MG In NS 250 / 250 Inj 250 ML @ 250 mls/hr IV.SIG ONCE ONE Rx#:[id number] Narrative: GENERAL: Patient sitting up in bed. Appears comfortable. Alert and oriented x3. SKIN: Warm and dry. HEAD: Atraumatic. Normocephalic. EYES: Pupils equal and round. No scleral icterus. No injection or drainage. ENT: No nasal bleeding or discharge. Mucous membranes pink and moist. NECK: Trachea midline. No JVD. CARDIOVASCULAR: Regular rate and rhythm. RESPIRATORY: No accessory muscle use. Clear to auscultation. Breath sounds equal bilaterally. GASTROINTESTINAL: Abdomen soft, non-tender, nondistended. Hepatic and splenic margins not palpable. MUSCULOSKELETAL: Extremities without clubbing, cyanosis, or edema. No obvious deformities. Dorsum of left medial hand with marketed erythema, warmth, swelling. Purulent drainage from incision. NEUROLOGICAL: Awake and alert. No obvious cranial nerve deficits. Motor grossly within normal limits. Five out of 5 muscle strength in the arms and legs. Normal speech. PSYCHIATRIC: Appropriate mood and affect; insight and judgment normal. Results - Labs CBC & Chem 7: 11/02/17 00:30 11/02/17 00:30 Labs: Short CBC 11/02/17 Range/Units 00:30 WBC 6.0 (4.0-11.0) th/mm3 Hgb 11.9 (11.6-15.3) gm/dL Hct 35.5 (35.0-46.0) % Plt Count 288 (150-450) th/mm3 BMP 11/02/17 00:30 Sodium 144 Potassium 3.7 Chloride 109 H Carbon Dioxide 25.8 BUN 9 Creatinine 0.78 Calcium 8.7 - Imaging Impressions Hand X-Ray 11/01/17 22:30 CONCLUSION: 1. Osseous structures the hand are radiographically intact. 2. Mild dorsal soft tissue swelling. Caprini VTE Risk Assessment Caprini VTE Risk Assessment: No/Low Risk (score <= 1) Caprini Risk Assessment Model: Point Value = 1 Point Value = 2 Point Value = 3 Point Value = 5 Age 41-60 Minor surgery BMI > 25 kg/m2 Swollen legs Varicose veins or History of unexplained or recurrent spontaneous Oral contraceptives or hormone replacement Sepsis (< 1 month) Serious lung disease, including pneumonia (< 1 month) Abnormal pulmonary function Acute myocardial infarction Congestive heart failure (< 1 month) History of inflammatory bowel disease Medical patient at bed rest Age 61-74 Arthroscopic surgery Major open surgery (> 45 min) Laparoscopic surgery (> 45 min) Malignancy Confined to bed (> 72 hours) Immobilizing plaster cast Central venous access Age >= 75 History of VTE Family history of VTE Factor V Leiden Prothrombin [id number] Lupus anticoagulant Anticardiolipin antibodies Elevated serum homocysteine Heparin-induced thrombocytopenia Other congenital or acquired thrombophilia Stroke (< 1 month) Elective arthroplasty Hip, pelvis, or leg fracture Acute spinal cord injury (< 1 month) Prophylaxis Regimen: Total Risk Factor Score Risk Level Prophylaxis Regimen 0-1 Low Early ambulation 2 Moderate Order ONE of the following: *Sequential Compression Device (SCD) *Heparin 5000 units SQ BID 3-4 Higher Order ONE of the following medications: *Heparin 5000 units SQ TID *Enoxaparin/Lovenox 40 mg SQ daily (WT < 150 kg, CrCl > 30 mL/min) *Enoxaparin/Lovenox 30 mg SQ daily (WT < 150 kg, CrCl > 10-29 mL/min) *Enoxaparin/Lovenox 30 mg SQ BID (WT < 150 kg, CrCl > 30 mL/min) AND/OR *Sequential Compression Device (SCD) 5 or more Highest Order ONE of the following medications: *Heparin 5000 units SQ TID (Preferred with Epidurals) *Enoxaparin/Lovenox 40 mg SQ daily (WT < 150 kg, CrCl > 30 mL/min) *Enoxaparin/Lovenox 30 mg SQ daily (WT < 150 kg, CrCl > 10-29 mL/min) *Enoxaparin/Lovenox 30 mg SQ BID (WT < 150 kg, CrCl > 30 mL/min) AND *Sequential Compression Device (SCD) Assessment and Plan - Plan //Left hand abscess. = No leukocytosis or other SIRS criteria. Will start on broad-spectrum antibiotics. = Erythema is quite significant, and we will consult hand surgery. Request cultures from [facility]. //IV drug use. Cessation counseling provided. Discussed Condition With: Patient, nurse, ED physician.
[2017-11-02] MEDS: Sod Chloride 0.9% Inj 1,000 ML IV.CONT SCH ×4 (05:39→20:29)
--- NOTE | 2017-11-02 10:33 | US ---
EXAM DATE: 11/02/2017 12:00 AM EDT AGE/SEX: 32 years / Female INDICATIONS: Left hand IV drug use, pain and drainage from wound site. CLINICAL DATA: This is the patient's initial encounter. Patient reports that signs and symptoms have been present for 4 - 6 days and indicates a pain score of 10/10. MEDICAL/SURGICAL HISTORY: . IV drug use. Appendectomy. Cholecystectomy. Hysterectomy. COMPARISON: No prior exams available for comparison. FINDINGS: There is an ill-defined subcutaneous collection measuring 4.2 x 2.0 x 0.8 cm with regional hyperemia in the ulnar aspect of the hand. This collection is less than 5 mm below the skin surface. CONCLUSION: 1. Ultrasound findings concerning for subcutaneous 4.2 cm abscess in the ulnar aspect of the left landry nd. Electronically signed by: Jimy Kauffman MD 11/02/2017 10:31 AM EDT
[2017-11-02] MEDS: Ketorolac Inj 30 MG/ML (IVP) Vial IV.PUSH PRN ×2 (11:36→21:51)
[2017-11-02] MEDS: Vancomycin Inj 1,500 MG in Sodium Chlor 0.9% Inj 500 ML IV.SIG SCH ×2 (11:37→23:18)
--- NOTE | 2017-11-02 17:50 | MB ---
cc: Parish Wong MD DATE: 11/02/2017 REASON FOR CONSULTATION: Left hand infection. HISTORY OF PRESENT ILLNESS: The patient is a 32-year-old right-hand dominant female, presenting with complaints of pain and swelling involving the left hand for the past 4 days. The patient gives a history of IV drug abuse. The patient was seen at [facility]. She had incision and drainage of the left hand abscess. She presented to the [place] [facility] with worsening pain and swelling of the left hand. The patient was on clindamycin and Keflex but she was unable to fill the prescription. She also complains of mild fever. Denies any numbness. PAST MEDICAL AND SURGICAL HISTORY: Reviewed and significant for IV drug abuse EXAMINATION: GENERAL: The patient is alert, oriented x3. EXTREMITIES: Examination of his left hand reveals a small incision over the ulnar aspect of the dorsal aspect of the hand with mild drainage of purulent material from the region surrounding fluctuation noted. Diffuse swelling of the hand notable tenderness noted over the region. Range of motion of the fingers are limited and painful. No tenderness noted at the wrist joint. Forearm rotation is full and painless. Wrist flexion and extension, terminal degrees of flexion is associated with pain. LABORATORY DATA: Her lab work was reviewed. She has white count of 6 and neutrophil shift of 67%. X-rays of the right hand shows soft tissue swelling. Ultrasound of the left hand shows evidence of abscess collection measuring about 4.2 x 2 x 0.8 cm with surrounding hyperemia. ASSESSMENT: A 32-year-old female with history of IV drug abuse with left hand abscess. Plan will be to continue the IV antibiotics. I will take the patient emergently for incision and drainage of left hand abscess. We will keep the limb elevated and we will keep the patient n.p.o. Parish Wong MD SE/ct , 04:22 PM , 04:30 PM
[2017-11-02 18:37] LABS: Amphetamine Screen,Urine Neg (Neg); Barbiturate Screen,Urine Neg (Neg); Cannabinoid Screen,Urine Neg (Neg); Cocaine Screen,Urine Pos (Neg)
[2017-11-02 18:41] LABS: Opiate Screen,Urine Pos (Neg)
[2017-11-02] MEDS ORDERED: Glycopyrrolate Inj 1 MG/5 ML Syringe IV.PUSH ONE (19:00)
[2017-11-02] MEDS ORDERED: Lidocaine PF 1% Inj 5 ML Syringe OTHER ONE (19:00)
[2017-11-02] MEDS ORDERED: Neomycin/Polymyxin G.U. Irrigant 1 ML Ampul ONE (19:05)
--- NOTE | 2017-11-02 19:43 | P.OP ---
- Preoperative Diagnosis (1) Abscess of left hand - Postoperative Diagnosis (1) Abscess of left hand Date of procedure: 11/02/17 Procedure: incision and drainage of left hand abscess Anesthesia: GETA Surgeon: Parish Wong MD Estimated blood loss (mL): 5 Tourniquet time (min): 8 Pathology: other (swab for c/s) Operation and Findings: abscess cavity over the dorsoulnar aspect of the left hand
[2017-11-02] MEDS ORDERED: Morphine Inj 4 MG/ML Vial ONE (20:00)
[2017-11-02] MEDS ORDERED: fentaNYL Citrate Inj 100 MCG/2 ML Ampul ONE (20:00)
[2017-11-02] MEDS ORDERED: *morphine SULFATE 4 MG/ML PERIprocedure ONLY ONE ×2 (20:04→20:22)
--- NOTE | 2017-11-02 22:15 | MP ---
cc: Parish Wong MD DATE OF OPERATION: 11/02/2017 PREOPERATIVE DIAGNOSIS: Left hand abscess. POSTOPERATIVE DIAGNOSIS: Left hand abscess. PROCEDURE PERFORMED: Incision and drainage of left hand abscess. SURGEON: Parish Wong MD ANESTHESIA: General. ESTIMATED BLOOD LOSS: 5 mL. TOURNIQUET TIME: 8 minutes at 250 mmHg. SPECIMENS: Sent for culture and sensitivity. DISPOSITION: To PACU stable. INDICATIONS: The patient is a 32-year-old female with history of IV drug abuse who presented with complaints of pain and swelling over the left hand region. The patient had incision and drainage at [facility] with persistent symptoms. On examination, she had fluctuation over the dorsal ulnar aspect of the hand with drainage of purulent material. An ultrasound showed a 4 x 2 x 1 cm abscess cavity over the dorsal ulnar aspect of the hand. The patient was consented for incision and drainage of left hand abscess. DESCRIPTION OF PROCEDURE: The patient was brought to the operating room. Under general anesthesia, the left upper extremity was sterilely prepped and draped. Incision site was marked in a longitudinal fashion corresponding to the abscess cavity and measuring about 3 cm. After limb elevation, the tourniquet was inflated to 250 mmHg. An incision was then made over the proposed incision. Soft tissue dissection was carried out, exposing the abscess cavity. The abscess was then drained with 3-4 mL of purulent material drained from the region. Blunt dissection was carried out, breaking the pockets over the dorsal aspect of the hand. A swab was sent for culture and sensitivity. A thorough wash was given using normal saline mixed with hydrogen peroxide. This was then followed by normal saline mixed with irrigant. About a liter of solution was used. Tourniquet was deflated at 8 minutes. Bleeding points were cauterized with bipolar cautery. Packing of the wound was carried out and a bulky hand dressing was applied, which was held in place by Sof-Rol and bias hand wrap. The patient had good distal circulation after release of the tourniquet. The patient was recovered and sent to recovery in stable condition. We will follow up cultures and continue the IV antibiotics. Parish Wong MD SE/piero , 07:45 PM , 07:52 PM
[2017-11-03] MEDS: Sod Chloride 0.9% Inj 1,000 ML IV.CONT SCH ×3 (01:56→20:58)
[2017-11-03] MEDS: Ketorolac Inj 30 MG/ML (IVP) Vial IV.PUSH PRN ×2 (05:29→11:07)
[2017-11-03] MEDS: Vancomycin Inj 1,500 MG in Sodium Chlor 0.9% Inj 500 ML IV.SIG SCH ×2 (11:15→23:06)
--- NOTE | 2017-11-03 12:11 | P.PN ---
Subjective Interval history: The patient is in bed she complains of more pain in her hand at the surgical site. Plan to change the dressing today. Will give one-time dose of morphine. Also says tramadol does not work. We will add Rufe as needed per pain scale. We will keep for breakthrough pain. Discussed with Dr. Sanchez hand surgeon Physical Exam Vital signs: Vital Signs 11/02/17 16:00 11/02/17 19:53 11/02/17 20:00 Temperature 98.5 F 97.9 F 97.9 F Pulse Rate 79 72 Respiratory Rate 16 13 20 Blood Pressure 120/71 125/60 109/68 Pulse Oximetry 99 100 100 11/02/17 20:06 11/02/17 20:15 11/02/17 20:30 Temperature Pulse Rate 77 74 Respiratory Rate 16 20 16 Blood Pressure 120/71 120/74 Pulse Oximetry 100 100 11/02/17 20:45 11/03/17 00:56 11/03/17 04:00 Temperature 97.6 F 97.1 F L Pulse Rate 75 80 77 Respiratory Rate 16 19 18 Blood Pressure 104/66 108/69 112/75 Pulse Oximetry 100 97 98 11/03/17 08:00 Temperature 97.3 F L Pulse Rate 93 H Respiratory Rate 18 Blood Pressure 132/83 Pulse Oximetry 100 Intake & Output 11/02/17 11/03/17 11/03/17 18:59 06:59 18:59 Intake Total 1515 / 1515 3165 / 3165 1300 / 1300 Output Total 5 / 5 Balance 1515 / 1515 3160 / 3160 1300 / 1300 Weight 98.5 kg Intake: IV 1515 / 1515 2515 / 2515 1000 / 1000 NS Inj 1,000 ML @ 100 mls/hr IV 1000 / 1000 2000 / 2000 1000 / 1000 .CONT .Q10H KOFI Rx#:[id number] Vancomycin Inj 1,500 MG In NS 515 / 515 515 / 515 Inj 500 ML @ 250 mls/hr IV.SIG Q12H KOFI Rx#:[id number] Oral 0 / 0 50 / 50 300 / 300 Anesthesia Amount 600 / 600 Output: Estimated Blood Loss 5 / 5 Other: # Voids 0 1 Date of Last Bowel Movement 11/02/17 # Bowel Movements 1 3 Narrative: GENERAL: Patient sitting up in bed. Appears comfortable. Alert and oriented x3. CARDIOVASCULAR: Regular rate and rhythm. RESPIRATORY: No accessory muscle use. Clear to auscultation. Breath sounds equal bilaterally. GASTROINTESTINAL: Abdomen soft, non-tender, nondistended. Hepatic and splenic margins not palpable. MUSCULOSKELETAL: Extremities without clubbing, cyanosis, or edema. No obvious deformities. Dorsum of left medial hand with marketed erythema, warmth, swelling. Purulent drainage from incision. NEUROLOGICAL: Awake and alert. No obvious cranial nerve deficits. Motor grossly within normal limits. Five out of 5 muscle strength in the arms and legs. Normal speech. PSYCHIATRIC: Appropriate mood and affect; insight and judgment normal. Results - Labs CBC & Chem 7: 11/02/17 00:30 11/02/17 00:30 Laboratory Results - last 24 hr 11/02/17 17:50 Urine Opiates Screen Pos H Ur Barbiturates Screen Neg Ur Amphetamines Screen Neg U Benzodiazepines Scrn Neg Urine Cocaine Screen Pos H U Cannabinoids Screen Neg Microbiology 11/02/17 19:21 Abscess - Hand Gram Stain - Final 11/02/17 19:21 Abscess - Hand Wound Culture - Preliminary gram negative rods 11/02/17 00:25 Blood - Peripheral Aerobic Blood Culture - Preliminary No growth in 1 day 11/02/17 00:25 Blood - Peripheral Anaerobic Blood Culture - Preliminary No growth in 1 day 11/02/17 00:35 Blood - Peripheral Aerobic Blood Culture - Preliminary No growth in 1 day 11/02/17 00:35 Blood - Peripheral Anaerobic Blood Culture - Preliminary No growth in 1 day 11/01/17 22:45 Abscess - Hand Gram Stain - Final 11/01/17 22:45 Abscess - Hand Wound Culture - Preliminary gram negative rods Assessment and Plan - Plan Left hand abscess. No leukocytosis or other SIRS criteria. Will start on broad-spectrum antibiotics. Erythema is quite significant Consult hand surgery. S/p incision and drainage of left hand abscess by Dr Wong on 11/03/17. Request cultures from [facility]. Will give one-time dose of morphine. Also says tramadol does not work. We will add Rufe as needed per pain scale. We will keep for breakthrough pain. Discussed with Dr. Sanchez hand surgeon IV drug use. Counseled. Discussed Condition With: Patient, nurse, Dr Wogn hand surgeon
[2017-11-03] MEDS ORDERED: Morphine Sulfate Inj 2 MG/ML Vial IV.PUSH ONE ×2 (13:19→14:15)
[2017-11-04 06:25] LABS: Glomerular Filtration Rate Greater Than 89 mL/min (>89)
[2017-11-04] MEDS: Sod Chloride 0.9% Inj 1,000 ML IV.CONT SCH ×2 (09:37→19:08)
[2017-11-04] MEDS ORDERED: Pharmacy Ordered Lab Info OTHER ONE (11:45)
[2017-11-04] MEDS: Vancomycin Inj 1,500 MG in Sodium Chlor 0.9% Inj 500 ML IV.SIG SCH ×2 (12:34→23:46)
--- NOTE | 2017-11-04 15:43 | P.PN ---
Subjective Interval history: She is in bed appears not acute distress. Says the pain is fairly controlled by medications. Trying to move digits more. No fever chills overnight. Nausea vomiting eating fairly well. Physical Exam Vital signs: Vital Signs 11/03/17 16:00 11/03/17 18:06 11/03/17 20:00 Temperature 97.4 F L 98.6 F Pulse Rate 74 85 Respiratory Rate 18 Blood Pressure 130/80 125/70 Pulse Oximetry 99 98 11/04/17 00:00 11/04/17 08:00 11/04/17 12:00 Temperature 98.1 F 98.5 F 98.4 F Pulse Rate 86 73 81 Respiratory Rate 18 16 16 Blood Pressure 124/61 111/81 118/69 Pulse Oximetry 100 99 100 Intake & Output 11/03/17 11/04/17 11/04/17 18:59 06:59 18:59 Intake Total 3015 / 3015 1515 / 1515 Output Total Balance 3014 / 3014 1515 / 1515 Weight 100 kg Intake: IV 1515 / 1515 1515 / 1515 NS Inj 1,000 ML @ 100 mls/hr IV 1000 / 1000 1000 / 1000 .CONT .Q10H KOFI Rx#:[id number] Vancomycin Inj 1,500 MG In NS 515 / 515 515 / 515 Inj 500 ML @ 250 mls/hr IV.SIG Q12H KOFI Rx#:[id number] Oral 1500 / 1500 Output: Stool Other: # Voids 5 Date of Last Bowel Movement 11/03/17 11/03/17 Narrative: GENERAL: Patient sitting up in bed. Appears comfortable. Alert and oriented x3. CARDIOVASCULAR: Regular rate and rhythm. RESPIRATORY: No accessory muscle use. Clear to auscultation. Breath sounds equal bilaterally. GASTROINTESTINAL: Abdomen soft, non-tender, nondistended. Hepatic and splenic margins not palpable. MUSCULOSKELETAL: Extremities without clubbing, cyanosis, or edema. No obvious deformities. Dorsum of left medial hand with marketed erythema, warmth, swelling. Purulent drainage from incision. NEUROLOGICAL: Awake and alert. No obvious cranial nerve deficits. Motor grossly within normal limits. Five out of 5 muscle strength in the arms and legs. Normal speech. PSYCHIATRIC: Appropriate mood and affect; insight and judgment normal. Results - Labs CBC & Chem 7: 11/02/17 00:30 11/04/17 05:45 Laboratory Results - last 24 hr 11/04/17 11/04/17 05:45 12:01 Creatinine 0.75 Estimated GFR Greater than 89 Vancomycin Trough 18.7 H Microbiology 11/02/17 00:35 Blood - Peripheral Aerobic Blood Culture - Preliminary No growth in 2 days 11/02/17 00:35 Blood - Peripheral Anaerobic Blood Culture - Preliminary gram positive cocci 11/02/17 00:25 Blood - Peripheral Aerobic Blood Culture - Preliminary No growth in 2 days 11/02/17 00:25 Blood - Peripheral Anaerobic Blood Culture - Preliminary No growth in 2 days 11/02/17 19:21 Abscess - Hand Gram Stain - Final 11/02/17 19:21 Abscess - Hand Wound Culture - Final Enterobacter cloacae Klebsiella pneumoniae 11/01/17 22:45 Abscess - Hand Gram Stain - Final 11/01/17 22:45 Abscess - Hand Wound Culture - Final Enterobacter cloacae Klebsiella pneumoniae Assessment and Plan - Plan Left hand abscess. No leukocytosis or other SIRS criteria. Will start on broad-spectrum antibiotics. Erythema is quite significant Consult hand surgery. S/p incision and drainage of left hand abscess by Dr Wong on 11/03/17. Request cultures from [facility]. [place] po as needed per pain scale. We will keep morphine for breakthrough pain. Discussed with Dr. Sanchez hand surgeon IV drug use. Counseled. Discussed Condition With: Patient, nurse Discharge plan : Discharge when improved and cleared by hand surgeon. Possible 1-2 days
[2017-11-05] MEDS: Sod Chloride 0.9% Inj 1,000 ML IV.CONT SCH ×3 (03:21→22:35)
[2017-11-05] MEDS ORDERED: levoFLOXacin 750 MG Tablet PO SCH (10:00)
--- NOTE | 2017-11-05 10:58 | P.PN ---
Subjective Interval history: Pt seen and examined for f/u L hand cellulitis/abscess. Complains of feeling nauseous overnight and had one episode of vomiting this morning. Denies abdominal pain, chest pain, shortness of breath, fever, chills. She is ambulating. Reports that she had been clean almost two years prior to injecting Dilaudid into her hand. She does not plan on using IV drugs anymore and is deeply remorseful. Physical Exam Vital signs: Vital Signs 11/04/17 12:00 11/04/17 16:00 11/04/17 20:00 Temperature 98.4 F 98.4 F 98.7 F Pulse Rate 81 79 80 Respiratory Rate 16 18 17 Blood Pressure 118/69 124/75 129/76 Pulse Oximetry 100 100 100 11/05/17 00:00 Temperature 98.1 F Pulse Rate 73 Respiratory Rate 17 Blood Pressure 123/68 Pulse Oximetry 100 Intake & Output 11/04/17 11/05/17 11/05/17 18:59 06:59 18:59 Intake Total 1235 / 1235 2295 / 2295 Balance 1235 / 1235 2295 / 2295 Intake: IV 515 / 515 1515 / 1515 NS Inj 1,000 ML @ 100 mls/hr IV 1000 / 1000 .CONT .Q10H KOFI Rx#:[id number] Vancomycin Inj 1,500 MG In NS 515 / 515 515 / 515 Inj 500 ML @ 250 mls/hr IV.SIG Q12H KOFI Rx#:[id number] Oral 720 / 720 780 / 780 Other: # Voids 4 6 Date of Last Bowel Movement 11/04/17 11/04/17 # Bowel Movements 1 1 Narrative: GENERAL: WN, WD pleasant female resting in bed in [facility]. SKIN: Warm and dry. No jaundice. HEENT: AT/NC. Pupils equal and round. MMM. HEART: RRR no m/r/g. LUNGS: CTAB without wheezes or crackles. ABDOMEN: +BS, soft, NT, ND. EXTREMITIES: No LE edema. 2+ pedal pulses. L hand wrapped in gauze. Neurovascular intact. NEURO: Awake and alert. PSYCH: Appropriate mood and affect. Results - Labs CBC & Chem 7: 11/02/17 00:30 11/04/17 05:45 Laboratory Results - last 24 hr 09/30/18 12:01 Vancomycin Trough 18.7 H Microbiology 11/02/17 00:35 Blood - Peripheral Aerobic Blood Culture - Preliminary No growth in 2 days 11/02/17 00:35 Blood - Peripheral Anaerobic Blood Culture - Preliminary gram positive cocci 11/02/17 00:25 Blood - Peripheral Aerobic Blood Culture - Preliminary No growth in 2 days 11/02/17 00:25 Blood - Peripheral Anaerobic Blood Culture - Preliminary No growth in 2 days 11/02/17 19:21 Abscess - Hand Gram Stain - Final 11/02/17 19:21 Abscess - Hand Wound Culture - Final Enterobacter cloacae Klebsiella pneumoniae 11/01/17 22:45 Abscess - Hand Gram Stain - Final 11/01/17 22:45 Abscess - Hand Wound Culture - Final Enterobacter cloacae Klebsiella pneumoniae Assessment and Plan - Assessment (1) Abscess of left hand Code(s): L02.512 - Cutaneous abscess of left hand Status: Acute - Plan 32 year old female with history of IVDU admitted on 11/02 for L hand abscess and cellulitis after failing outpatient treatment. Four days prior to admission she had gone to [facility] where I&D was done and she was discharged on Keflex and Clindamycin. Unfortunately, she was only able to fill the Keflex, and she came back to the ED with worsening pain, swelling, redness, and fever. 1. L hand cellulitis/abscess Not meeting septic criteria on admission No leukocytosis, remains afebrile Ultrasound showed 4.2 cm subcutaneous abscess in the ulnar aspect of the left hand Hand XR negative for evidence of osteomyelitis Hand surgery consulted and patient underwent I&D on 11/02 Cultures x2 growing pansensitive Enterobacter cloacae and Klebsiella pneumonia Discontinue vancomycin and changed to Zosyn. Attempted to change to PO Levaquin today but patient with nausea and vomiting. Hopefully can transition to PO tomorrow Toradol and [place] as needed 2. 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 Nausea/vomiting Abdominal exam benign Likely secondary to IV antibiotics Zofran and Phenergan as needed DVT prophylaxis: ambulatory Code Status: FULL Discussed Condition With: Patient, director of retail merchandising Planning: Hopefully in next 1-2 days when cleared by hand surgery
[2017-11-05] MEDS: Piperacil/Tazo 3.375 GM Premix 50 ML IV.SIG SCH ×2 (13:58→20:23)
[2017-11-05] MEDS: Ketorolac Inj 30 MG/ML (IVP) Vial IV.PUSH PRN (17:35)
[2017-11-05] MEDS: Morphine Inj 4 MG/ML Vial IV.PUSH PRN (22:34)
[2017-11-06] MEDS: Morphine Inj 4 MG/ML Vial IV.PUSH PRN ×2 (04:04→08:30)
[2017-11-06] MEDS: Sod Chloride 0.9% Inj 1,000 ML IV.CONT SCH ×2 (04:04→08:32)
[2017-11-06] MEDS: Piperacil/Tazo 3.375 GM Premix 50 ML IV.SIG SCH ×2 (05:07→12:24)
[2017-11-06] MEDS ORDERED: Ibuprofen 600 MG Tablet PO PRN (10:54)
--- NOTE | 2017-11-06 10:57 | P.PN ---
Subjective Interval history: Follow-up for left hand cellulitis, abscess status post I&D. Patient seen and examined resting in bed comfortably no acute distress. Patient reports that her nausea is much improved today and no vomiting, did have breakfast this morning. Denies any fevers, chills, shortness of breath, cough, chest pain or belly pain. Reports ongoing left hand pain which is relieved with breakthrough medication. Discussed with patient possibly going home today as long as she tolerates p.o. Levaquin and is on is cleared by hand surgery, patient is agreeable. Physical Exam Vital signs: Vital Signs 11/05/17 12:00 11/05/17 16:00 11/05/17 20:00 Temperature 97.8 F 98.3 F 98.5 F Pulse Rate 77 86 77 Respiratory Rate 16 18 16 Blood Pressure 123/74 123/74 122/81 Pulse Oximetry 100 100 100 11/06/17 00:00 11/06/17 07:48 Temperature 98.1 F 97.8 F Pulse Rate 70 64 Respiratory Rate 21 16 Blood Pressure 110/66 106/64 Pulse Oximetry 98 98 Intake & Output 11/05/17 11/06/17 11/06/17 18:59 06:59 18:59 Intake Total 670 / 670 100 / 100 Balance 670 / 670 100 / 100 Weight 95.1 kg Intake: IV 50 / 50 100 / 100 Zosyn 3.375 GM Premix 50 ML @ 50 / 50 100 / 100 100 mls/hr IV.SIG Q8H KOFI Rx#: [id number] Oral 620 / 620 Other: # Voids 3 2 Date of Last Bowel Movement 11/04/17 # Bowel Movements 0 Results - Labs CBC & Chem 7: 11/02/17 00:30 11/06/17 05:10 Laboratory Results - last 24 hr 11/06/17 05:10 Creatinine 0.87 Estimated GFR 76 L Microbiology 11/02/17 00:25 Blood - Peripheral Aerobic Blood Culture - Preliminary No growth in 3 days 11/02/17 00:25 Blood - Peripheral Anaerobic Blood Culture - Preliminary No growth in 3 days 11/02/17 00:35 Blood - Peripheral Aerobic Blood Culture - Preliminary No growth in 3 days 11/02/17 00:35 Blood - Peripheral Anaerobic Blood Culture - Preliminary gram positive cocci Assessment and Plan - Assessment (1) Abscess of left hand Code(s): L02.512 - Cutaneous abscess of left hand Status: Acute - Plan 32 year old female with history of IVDU admitted on 11/02 for L hand abscess and cellulitis after failing outpatient treatment. Four days prior to admission she had gone to [facility] where I&D was done and she was discharged on Keflex and Clindamycin. Unfortunately, she was only able to fill the Keflex, and she came back to the ED with worsening pain, swelling, redness, and fever. 1. L hand cellulitis/abscess Not meeting septic criteria on admission No leukocytosis, remains afebrile Ultrasound showed 4.2 cm subcutaneous abscess in the ulnar aspect of the left hand Hand XR negative for evidence of osteomyelitis Hand surgery consulted and patient underwent I&D on 11/02 Cultures x2 growing pansensitive Enterobacter cloacae and Klebsiella pneumonia s/p vanco and Zosyn. P.o. Levaquin yesterday however nauseated with vomiting. Attempt p.o. Levaquin once again today and if tolerated can be DC'd home. Discontinue IV morphine, p.o. [place] with Motrin for breakthrough pain. 2. 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 Nausea/vomiting Abdominal exam benign Likely secondary to IV antibiotics Zofran and Phenergan as needed, no further nausea or vomiting today. DVT prophylaxis: ambulatory Discussed Condition With: Patient, family at bedside and nurse. Discharge Planning: Will need hand clearance prior to discharge.
[2017-11-06] MEDS ORDERED: levoFLOXacin 750 MG Tablet PO SCH (11:00)
[2017-11-06] MEDS ORDERED: Pharmacy Ordered Lab Info OTHER ONE (11:45)
[2017-11-06 12:03] VITALS: BP 103/55; PULSE 83; RESP 14; TEMP 97.9; O2SAT 99
--- NOTE | 2017-11-06 14:42 | P.DS ---
Date of admission: 11/02/17 07:40 Primary care physician: No Primary Care Physician Attending physician on discharge: Nava Redmond Anticipated date of discharge: 11/06/17 Brief History from admission: 32-year-old female with a history of IV drug use who presents with one week history of redness, swelling, constant sharp pain in the left hand. She presented to [facility] 4 days ago, had an incision and drainage with culture, was sent home on Keflex and clindamycin, however has only been able to take her Keflex. She presents with worsening pain, swelling in the left hand. She endorses low-grade fevers, nausea, nonbloody vomiting. Denies any chest pain or shortness of breath. DS: Diagnosis - Discharge Diagnosis (1) Abscess of left hand Status: Acute DS: Summary Hospital Course: Left hand cellulitis, patient seen and evaluated by hand surgeon and underwent I &D on 11/02. Cultures x2 growing pansensitive Enterobacter cloacae and Klebsiella pneumonia. Patient was treated with Comycin and Zosyn which was later transitioned to p.o. Levaquin. Patient had episodes of nausea and vomiting with IV antibiotics along with p.o. Levaquin. Took oral Levaquin this morning with no vomiting. Pain control with p.o. hydrocodone, IV morphine discontinued. Nurse contacted surgeon who is okay with patient being discharged home with p.o. Levaquin and follow-up in 1 week in office. data center manager to arrange assistance for antibiotic cost coverage, 3 days worth of pain medication provided. Patient was counseled on IV drug cessation. Follow-up for left hand cellulitis, abscess status post I&D. Patient seen and examined resting in bed comfortably no acute distress. Patient reports that her nausea is much improved today and no vomiting, did have breakfast this morning. Denies any fevers, chills, shortness of breath, cough, chest pain or belly pain. Reports ongoing left hand pain which is relieved with breakthrough medication. Patient is agreeable with discharge home today. [employer] checked, Hydrocodone Rx on 10/02/17 with 12 tabs. Will provide patient with 3 days worth of hydrocodone and p.o. ibuprofen. - Time Spent with Patient Total time spent providing and/or coordinating discharge services: Less than 30 minutes - Quality: VTE Deep Vein Thrombosis/Pulmonary Embolism Present on Admission: No Exam Vital signs: Vital Signs 11/05/17 16:00 11/05/17 20:00 11/06/17 00:00 Temperature 98.3 F 98.5 F 98.1 F Pulse Rate 86 77 70 Respiratory Rate 18 16 21 Blood Pressure 123/74 122/81 110/66 Pulse Oximetry 100 100 98 11/06/17 07:48 11/06/17 12:00 Temperature 97.8 F 97.9 F Pulse Rate 64 83 Respiratory Rate 16 14 Blood Pressure 106/64 103/55 L Pulse Oximetry 98 99 Intake & Output 11/05/17 11/06/17 11/06/17 18:59 06:59 18:59 Intake Total 670 / 670 100 / 100 50 / 50 Balance 670 / 670 100 / 100 50 / 50 Weight 95.1 kg Intake: IV 50 / 50 100 / 100 50 / 50 Zosyn 3.375 GM Premix 50 ML @ 50 / 50 100 / 100 50 / 50 100 mls/hr IV.SIG Q8H KOFI Rx#: [id number] Oral 620 / 620 Other: # Voids 3 2 Date of Last Bowel Movement 11/04/17 # Bowel Movements 0 Narrative: GENERAL: Patient sitting up in bed. Appears comfortable. Alert and oriented x3. CARDIOVASCULAR: Regular rate and rhythm. RESPIRATORY: No accessory muscle use. Clear to auscultation. Breath sounds equal bilaterally. GASTROINTESTINAL: Abdomen soft, non-tender, nondistended. MUSCULOSKELETAL: Extremities without clubbing, cyanosis, or edema. No obvious deformities. Dorsum of left medial hand with well approximated incision sutures , no erythema, warmth noted.. Minimal serosanguineous drainage noted on gauze. Capillary refill all fingers less than 2 seconds, + sensation and mobility. NEUROLOGICAL: Awake and alert. No obvious cranial nerve deficits. Motor grossly within normal limits. Five out of 5 muscle strength in the arms and legs. Normal speech. PSYCHIATRIC: Appropriate mood and affect; insight and judgment normal. Results Procedures completed during hospitalization: I&D of left hand abscess 11/03/17 Labs on day of discharge: Labs from last 24 hours 11/06/17 05:10 Creatinine 0.87 Estimated GFR 76 L Preliminary micro results at discharge 11/02/17 00:35 Aerobic Blood Culture - Preliminary Blood - Peripheral No growth in 4 days 11/02/17 00:25 Aerobic Blood Culture - Preliminary Blood - Peripheral No growth in 4 days Anaerobic Blood Culture - Preliminary No growth in 4 days - Impressions ITS Impressions Hand X-Ray 11/01/17 22:30 CONCLUSION: 1. Osseous structures the hand are radiographically intact. 2. Mild dorsal soft tissue swelling. Soft Tissue Ultrasound 11/02/17 00:00 CONCLUSION: 1. Ultrasound findings concerning for subcutaneous 4.2 cm abscess in the ulnar aspect of the left hand. Discharge Plan - Discharge Disposition Patient Disposition: Discharge Home - Discharge Condition Condition: Good - Discharge Order Discharge Orders: Discharge Order (Routine); Ordered 11/06/17 Ordered By: Magaly Snowden - Physicians Team Primary Care Provider: Primary Care Amber Humphries Attending Provider: Nava Redmond Other Providers: Parish Wong MD
== END 2017-11-06 16:57 | disposition home or self-care (01) ==
LOC: NEPE 19:27 → INTOOBSV 11-02 04:26 → NEDA 11-02 04:26 → NEPGCP 11-02 05:12 → N07 11-02 20:55
PROVIDERS: ADMIT Hospitalist; ATTEND Hospitalist